=== PATIENT | male | born 1995 | race Two or more races ===

== ENCOUNTER 2017-12-25 03:11 | Emergency (ER) | payer SELFPAY ==
[~2017-12-25] VITALS: Ht 170.2 cm; Wt 59.0 kg
[2017-12-25] MEDS ORDERED: MORPHINE SULFATE 4 MG/ML SYR/VIAL IV ONE (03:45)
[2017-12-25] MEDS ORDERED: TETANUS-DIPTH-ACEL PERTUSSIS 0.5ML SYRG IM ONE (03:45)
[2017-12-25] MEDS ORDERED: ONDANSETRON HCL 4 MG/2 ML VIAL IV ONE ×2 (03:45→08:00)
[2017-12-25] MEDS ORDERED: KETOROLAC TROMETH 30 MG/ML 1ML VIAL IV ONE (08:00)
[2017-12-25] MEDS ORDERED: cefTRIAXone 1GM/10ml IVPUSH 10 ML IV ONE (08:00)
[2017-12-25 08:34] VITALS: BP 119/59
== END 2017-12-25 09:22 | disposition home or self-care (01) ==
LOC: ER 03:22
DX: S02.2XXA Fracture of nasal bones, initial encounter for closed fracture (principal); S01.112A Laceration without foreign body of left eyelid and periocular area, initial encounter; R60.9 Edema, unspecified; Y08.89XA Assault by other specified means, initial encounter; Y93.89 Activity, other specified; Y92.89 Other specified places as the place of occurrence of the external cause; Y99.8 Other external cause status
CPT/HCPCS: 70450; 70486; 72125; 90471; 96374; 96375; 96376; 99284; J0696; J1885; J2270; J2405